=== PATIENT | female | born 1955 | race Caucasian/White ===

== ENCOUNTER 2017-02-02 11:20 | Day surgery (SDC) | payer BC ==
[2017-01-27 13:04] LABS: HEMOGLOBIN 12.9 g/dL (12.0-16.0)
[2017-01-27 13:09] LABS: HEMATOCRIT 38.3 % (36.0-48.0)
[2017-01-27 13:10] LABS: BUN (BLOOD UREA NITROGEN) 21 MG/DL (6-23); CHLORIDE, SERUM 108 MMOL/L (96-112); CO2 (CARBON DIOXIDE) 26 MMOL/L (24-34); CREATININE 1.08 MG/DL (0.55-1.02); GFR AFRICAN AMERICAN 64 ML/MIN (>=60); GFR NON AFRICAN AMERICAN 55 ML/MIN (>=60); GLUCOSE, SERUM 176 MG/DL (60-99); POTASSIUM, SERUM 4.1 MMOL/L (3.5-5.3); SODIUM, SERUM 143 MMOL/L (135-148)
[2017-01-27 13:21] LABS: INTACT PTH (ICMA) 102.7 PG/ML (10.0-65.0)
--- NOTE | ~2017-02-02 | OP ---
Record Of Operation [facility] [address] [place]. [address] NAME: FRANCESCA CROW : 53 STATUS : [facility]#: [id number] AGE: 61 ADM/REG DATE : 02/02/17 MR#: [id number] REPORT SERV DATE: 02/02/17 DICTATED BY: MERA JACOBS DATE: 02/02/17 REPORT STATUS : Draft TRANSCRIBED BY: PAOLA DATE: 02/02/17 DATE OF PROCEDURE: PREOPERATIVE DIAGNOSIS: Primary hyperparathyroidism. POSTOPERATIVE DIAGNOSIS: Primary hyperparathyroidism. PROCEDURE: Parathyroidectomy. CHIEF RESIDENT: Bebeto Melendez MD. ANESTHESIA: General. IV FLUIDS: Approximately 1500 mL. ESTIMATED BLOOD LOSS: 20 mL. COMPLICATIONS: None known. COUNTS: Correct. SPECIMEN: 1. Left superior parathyroid. 2. Right superior parathyroid. BRIEF HISTORY: The patient is a 61-year-old female, found to have hypercalcemia as well as PTH over 100 in the outpatient setting. On interview had bone pain and fatigue. She has not had a BMD. She had an ultrasound in the office which demonstrated a hypoechoic lesion, right, that was difficult to determine due to the hypothyroidism. Sestamibi was conducted and demonstrated a right-sided lesion with substantial uptake. The risks, alternatives, and benefits of the procedure were discussed with the patient, and she agreed to proceed with parathyroidectomy. DESCRIPTION OF PROCEDURE: The patient was brought to the operating room and placed supine on the operating table. Anesthetic was administered, endotracheal intubation achieved. A shoulder roll was placed behind the patient's shoulder blades. She was positioned in semi- Low's position to gain maximal extension of the neck. The neck and upper chest were prepped and draped in a standard sterile fashion. A time-out was held. A 4 cm incision was placed in a natural skin crease centered on her neck. It was carried down to the level of the platysma, which was divided with electrocautery, and our subplatysmal flaps were made. The median raphe were divided, and the right thyroid was dissected free from the posterior aspect of the strap muscles. The right thyroid was medialized after we had reached the carotid sheath. We began on exploration on the right. The inferior thyroid vein was doubly clipped and divided. The inferior thyroid artery was identified. We had difficulty locating the right superior or inferior parathyroid gland. Next, we turned our attention to the left neck. The left thyroid was dissected off the posterior aspect of the strap muscles Record Of Operation [facility] [address] [place]. [address] NAME: FRANCESCA CROW : 53 STATUS : [facility] PAT#: [id number] AGE: 61 ADM/REG DATE : 02/02/17 MR#: [id number] REPORT SERV DATE: 02/02/17 DICTATED BY: MERA JACOBS DATE: 02/02/17 REPORT STATUS : Draft TRANSCRIBED BY: MODL DATE: 02/02/17 on this side. The thyroid was medialized and dissection carried over to the carotid sheath. Again, the inferior thyroid vein was double clipped and divided. The left superior parathyroid was identified and dissected from the surrounding investing tissue. The pedicle was isolated, clipped, and divided. The specimen was passed off. Next, we looked for the inferior left parathyroid, which we found adjacent to the inferior pole of the thyroid. After 10 minutes and 15 minutes, parathyroid hormone level was sent intraoperatively. We ensured that there is adequate hemostasis and began closure. We waited the laboratory values. The 10-minute delay parathyroid level was elevated into the one teens higher than the preop baseline. We then began our exploration of the right neck again since we did not clearly identified parathyroid gland either in the superior or inferior pole. After further dissection, we identified the right superior parathyroid gland that had previously been retracted laterally, that was very large. The investing tissue was dissected free and the pedicle isolated. The pedicle was clipped and divided. The specimen passed off. In the meantime, prior to this, right central neck tissue had been sent down and identified to be lymph nodes without any evidence of parathyroid gland. 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 Adequate hemostasis was achieved and closure begun. The median raphe was reapproximated with a 3-0 Vicryl in running fashion. The platysma was reapproximated with 4-0 interrupted Vicryl. The superficial incision was closed at the dermal level with 4-0 Monocryl in a dermal fashion and 5-0 Prolene run for application of Dermabond. Once this was conducted, the procedure was terminated. The patient was extubated and transferred to the recovery room in stable condition. ARTHUR/PAOLA Mear Jacobs MD / [id number]
[~2017-02-02 11:20] MED LIST: GLUCPH PO; HYZAAR 100/25 T1 TAB PO; LEVOTHYROXIN150 MCG PO; LOP50 PO; MOBIC7.5 PO; NEUR300 PO; PAXIL40 MG PO
[2017-02-02 14:38] LABS: PTH TAT 0 Hrs 20 Mins
[2017-02-02 14:43] LABS: PTH (INTRAOPERATIVE) 136.9 PG/ML (10.0-65.0); PTH TAT 0 Hrs 20 Mins
== END 2017-02-02 21:07 | disposition home or self-care (01) ==
LOC: SDC 11:20
PROVIDERS: Surgery
PROC: 0GBR0ZZ Excision of Parathyroid Gland, Open Approach (ICD-10-PCS; principal; 2017-02-02 12:45)
DX: E21.0 Primary hyperparathyroidism (principal); M32.9 Systemic lupus erythematosus, unspecified; E11.22 Type 2 diabetes mellitus with diabetic chronic kidney disease; I12.9 Hypertensive chronic kidney disease with stage 1 through stage 4 chronic kidney disease, or unspecified chronic kidney disease; N18.2 Chronic kidney disease, stage 2 (mild); M13.862 Other specified arthritis, left knee; M13.861 Other specified arthritis, right knee; M13.842 Other specified arthritis, left hand; M13.841 Other specified arthritis, right hand; E03.9 Hypothyroidism, unspecified; F41.9 Anxiety disorder, unspecified; Z88.1 Allergy status to other antibiotic agents; Z90.710 Acquired absence of both cervix and uterus
CPT/HCPCS: 80048; 82962; 83970; 85014; 85018; 88305; 88313; 88331; 93005; J0330; J0690; J2250; J2370; J2405; J2710; J3010